=== PATIENT | male | born 1955 | race Caucasian/White ===

== ENCOUNTER → 2024-09-09 13:42 | Outpatient (REF) | payer OTHER, SELFPAY | LOC: RCS 13:42 | PROVIDERS: ATTENDING PHYSICIAN Internal Medicine Cardiovascular Disease; FAMILY PHYSICIAN Family Medicine | DX: I20.1 Angina pectoris with documented spasm (principal); R42 Dizziness and giddiness | CPT/HCPCS: 93306 ==